=== PATIENT | female | born 1955 | race Caucasian/White ===

== ENCOUNTER → 2016-07-27 | Day surgery (SDC) | payer MEDICARE, OTHER ==
[~2016-07-27] VITALS: Ht 157.5 cm; Wt 68.3 kg
[~2016-07-27] MED LIST: ADVAIR 250-501 EACH INH; COLACE100 MG PO; FLEXERIL10 MG PO; HABITROL7 MG TP; LAXATIVE5 M1 PO; LOPRESSOR50 MG PO; MAG-OXIDE 400M400 MG PO; NEURONTIN300 MG PO; NEURONTIN400 MG PO; PRILOSEC20 MG PO; SINEQUAN50 MG PO; XANAX0.25 MG PO
[2016-07-27 13:19] LABS: CREATININE 0.8 mg/dL (0.5-1.0)
== END | disposition home or self-care (01) ==
LOC: FAS 09:42
PROVIDERS: Legal Medicine
DX: T81.31XA Disruption of external operation (surgical) wound, not elsewhere classified, initial encounter (principal); K21.9 Gastro-esophageal reflux disease without esophagitis; I10 Essential (primary) hypertension; J44.9 Chronic obstructive pulmonary disease, unspecified; F17.210 Nicotine dependence, cigarettes, uncomplicated; Z86.010 Personal history of colon polyps; Z90.710 Acquired absence of both cervix and uterus; Z98.1 Arthrodesis status; Z96.653 Presence of artificial knee joint, bilateral; Z98.890 Other specified postprocedural states; Z88.6 Allergy status to analgesic agent; Z88.8 Allergy status to other drugs, medicaments and biological substances; Z91.09 Other allergy status, other than to drugs and biological substances; Z79.899 Other long term (current) drug therapy
CPT/HCPCS: 36415; 80048; 87070; 87075; 87205; 87640; 87641; 87900; J1170; J1885; J2405; J2704; J2795; J3010; J3260